=== PATIENT | female | born 1955 | race African-American/Black ===

== ENCOUNTER 2022-11-24 13:18 | Emergency (ER) | payer OTHER ==
[~2022-11-24] VITALS: Ht 157.5 cm; Wt 64.0 kg
[2022-11-24] MEDS ORDERED: ACETAMINOPHEN 325MG TABLET PO ONE (14:30)
[2022-11-24] MEDS ORDERED: IBUPROFEN 400MG TABLET PO ONE (14:30)
[2022-11-24 15:36] LABS: BASOPHILS % 0.6 % (0.0-2.0); EOSINOPHILS % 0.9 % (0.0-5.0); HEMATOCRIT. 39.5 % (36.0-48.0); HEMOGLOBIN. 13.5 g/dL (12.0-16.0); LYMPHOCYTES % 16.2 % (20.0-50.0); MEAN CORPUSCULAR HEMOGLOBIN 26.3 pg (28.0-32.0); MEAN CORPUSCULAR VOLUME 77.2 fL (81.0-99.0); MEAN PLATELET VOLUME 8.4 fl (7.4-10.4); MONOCYTES % 9.1 % (2.0-8.0); NEUTROPHILS % 73.2 % (40.0-76.0); PLATELET 266 x1000/uL (130-400); RED BLOOD CELL COUNT 5.12 mill/uL (4.2-5.4); RED CELL DISTRIBUTION WIDTH 13.5 % (11.6-14.6)
[2022-11-24 15:43] LABS: CHLORIDE 104 mEq/L (98-107)
[2022-11-24 15:46] LABS: PROTHROMBIN TIME 10.7 sec (9.6-11.0)
[2022-11-24 15:52] LABS: PHOSPHORUS 2.6 mg/dL (2.5-4.9)
[2022-11-24] MEDS ORDERED: ACETAMINOPHEN 325MG TABLET PO NR (16:15)
[2022-11-24] MEDS ORDERED: IBUPROFEN 400MG TABLET PO NR (16:15)
[2022-11-24 16:17] VITALS: BP 136/70
== END 2022-11-24 16:27 | disposition home or self-care (01) ==
LOC: ER 13:18
DX: I47.1 Supraventricular tachycardia (principal); R00.2 Palpitations
CPT/HCPCS: 36415; 71045; 80053; 83735; 83880; 84100; 84484; 85025; 93005; 99285